=== PATIENT | male | born 1970 ===

== ENCOUNTER 2023-11-25 18:26 | Emergency (ER) | payer SELFPAY ==
[2023-11-25 18:27] VITALS: BP 143/66; PULSE 82; RESP 20; TEMP 36.6; O2SAT 93
--- NOTE | 2023-11-25 18:56 | PC.NURSE ---
pt denied need to be here, leaving with spouse
== END 2023-11-26 00:04 | disposition left against medical advice (07) ==
LOC: ANHED 20:52
PROVIDERS: PCP Family Medicine
DX: R06.00 Dyspnea, unspecified (principal)
CPT/HCPCS: 99199